=== PATIENT | female | born 1965 | race American Indian/Alaskan Native ===

== ENCOUNTER 2019-05-25 15:05 | Emergency (ER) | payer SELFPAY ==
[2019-05-25 16:46] VITALS: BP 131/80
[2019-05-25] MEDS ORDERED: ASPIRIN 325 MG TAB PO ONE (16:47)
--- NOTE | 2019-05-25 16:48 | Event Note ---
ED Screening Note Date of service: 05/25/19 Time: 16:46 ED Screening Note: 53 y o f with pMH of HTN presents with left sided chest pain x this am This initial assessment/diagnostic orders/clinical plan/treatment(s) is/are subject to change based on patients health status, clinical progression and re- assessment by fellow clinical providers in the ED. Further treatment and workup at subsequent clinical providers discretion. Patient/guardian urged not to elope from the ED as their condition may be serious if not clinically assessed and managed. Initial orders include: labs,ekg, cxr
--- NOTE | 2019-05-25 17:32 | XRay Report ---
CHEST 2 VIEWS INDICATION: Chest Pain. COMPARISON: None. FINDINGS: Support devices: None. Heart: Within normal limits. Lungs/Pleura: No acute air space or interstitial disease. No significant pleural effusion. IMPRESSION: No acute findings. Signer Name: Giovanni Zamora MD Signed: 05/25/2019 5:28 PM Workstation Name: [id number]
[2019-05-25 19:00] LABS: Basophils # (Auto) 0.1 K/mm3 (0.0-0.1); Basophils % (Auto) 0.9 % (0.0-1.8); Hematocrit 39.1 % (30.3-42.9); Lymphocytes # (Auto) 2.4 K/mm3 (1.2-5.4); Lymphocytes % (Auto) 23.6 % (13.4-35.0); Mean Corpuscular HGB Conc 33 % (30-34); Mean Corpuscular Volume 89 fl (79-97); Monocytes # (Auto) 0.8 K/mm3 (0.0-0.8); Monocytes % (Auto) 8.3 % (0.0-7.3); Platelet Count 379 K/mm3 (140-440); Red Blood Count 4.41 M/mm3 (3.65-5.03); Red Cell Distribution Width 13.7 % (13.2-15.2)
[2019-05-25 19:19] LABS: BUN/Creatinine Ratio 21; Blood Urea Nitrogen 15 mg/dL (7-17); Calcium 9.9 mg/dL (8.4-10.2); Hemolysis Index 7
[2019-05-25] MEDS ORDERED: ASPIRIN 325 MG TAB ONE (19:37)
[2019-05-25] MEDS ORDERED: POTASSIUM CHLORIDE ER 20 MEQ TAB PO ONE (20:00)
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
== END 2019-05-25 23:35 | disposition left against medical advice (07) ==
LOC: ED 15:05
DX: R07.9 Chest pain, unspecified (principal); R10.9 Unspecified abdominal pain; M25.541 Pain in joints of right hand; M25.542 Pain in joints of left hand; I10 Essential (primary) hypertension; M10.9 Gout, unspecified; F10.10 Alcohol abuse, uncomplicated; Z98.890 Other specified postprocedural states; Z79.899 Other long term (current) drug therapy
CPT/HCPCS: 36415; 71046; 80048; 84484; 85025; 93005; 93010; 99284